=== PATIENT | male | born 1995 | race Caucasian/White ===

== ENCOUNTER 2018-01-17 17:13 | Emergency (ER) | payer OTHER ==
[~2018-01-17] VITALS: Ht 170.2 cm; Wt 61.0 kg
[2018-01-17 17:17] VITALS: BP 113/71; PULSE 66; RESP 18; TEMP 98.8; O2SAT 96
[2018-01-17] MEDS ORDERED: IBUPROFEN 600 MG TAB PO ONE (19:00)
--- NOTE | 2018-01-17 19:07 | PD ---
HPI Chief Complaint: Musculoskeletal Complaint Time Seen by Provider: 18:36 Travel History International Travel<30 days: No Contact w/Intl Traveler<30days: No Traveled to known affect area: No History of Present Illness HPI 22-year-old male presents to the emergency room for evaluation of right foot pain and swelling after injuring it just prior to arrival while at work. He was pulling a pallet of fluids that weighed close to 1000 pounds and accidentally pulled it over his foot. He had immediate pain localized to the right fourth and fifth toes and worse with range of motion or when he pushes on it. He has not taken anything for pain. Denies paresthesias. No chronic medial conditions or daily medications. [facility] Social History Alcohol Use: No Tobacco Use: No Substance Use: No Allergies-Medications (Allergen,Severity, Reaction): Coded Allergies: No Known Allergies (Unverified , 01/17/18) Reported Meds & Prescriptions Reported Meds & Active Scripts Active No Active Prescriptions or Reported Medications Review of Systems Except as stated in HPI: all other systems reviewed are Neg Physical Exam Narrative GENERAL: Well-nourished, well-developed male in no acute distress. Afebrile. Ambulatory. SKIN: Focused skin assessment warm/dry. Moderate erythema and very mild subungual hematomas of the right fourth and fifth toes. HEAD: Normocephalic. EYES: No scleral icterus. No injection or drainage. NECK: Supple, trachea midline. No JVD or lymphadenopathy. CARDIOVASCULAR: Regular rate and rhythm without murmurs, gallops, or rubs. RESPIRATORY: Breath sounds equal bilaterally. No accessory muscle use. MUSCULOSKELETAL: No cyanosis. Very mild edema of the right fourth and fifth toes. Less than 2 second capillary refill distally. No bony tenderness to palpation of the foot or 1-3 toes but moderate TTP of the right fourth and fifth toes. Limited range of motion of the toe secondary to pain. Data Data Last Documented VS Vital Signs Date Time Temp Pulse Resp B/P (MAP) Pulse Ox O2 Delivery O2 Flow Rate FiO2 01/17/18 17:17 98.8 66 18 113/71 (85) 96 Orders Orders Foot, Complete ([id number]) (01/17/18 ) Ibuprofen (Motrin) (01/17/18 19:00) [facility] Medical Decision Making Medical Screen Exam Complete: Yes Emergency Medical Condition: Yes Medical Record Reviewed: Yes Differential Diagnosis Contusion, strain, sprain, fracture Narrative Course 22-year-old male presents to the emergency room for evaluation of right fourth and fifth toe pain and swelling after running over it with a 1000 pound pallet just prior to arrival. Physical exam reveals moderate ecchymosis, erythema, and edema of the right fourth and fifth toes. There is very mild subungual hematomas. Extreme tenderness to palpation of the toes. X-ray of the foot is read as negative but there is obvious fracture of the fifth toe. Patient's toe was robert taped and he was placed in postop shoe. He was told to follow-up with a primary care physician or return for worsening symptoms. He understands and agrees to plan. Diagnosis Primary Impression: Toe fracture, right Qualified Codes: S92.531A - Displaced fracture of distal phalanx of right lesser toe(s), initial encounter for closed fracture Referrals: Primary Care Physician Additional Instructions: Rest and drink plenty of fluids. Keep toe robert taped for at least 6 weeks. Take ibuprofen with food as directed, as needed for pain. Apply ice to the affected area for 20 minutes at a time, as needed for pain and swelling. Follow-up with a primary care physician. Return to the emergency room for worsening symptoms. Med/Other Pt SpecificInfo: Prescription(s) given Scripts No Active Prescriptions or Reported Meds Disposition: 01 DISCHARGE HOME Condition: Stable Seble Jacobs Jan 17, 2018 19:07
--- NOTE | 2018-01-17 20:02 | RADRPT ---
EXAM DATE/TIME: 01/17/2018 19:35 [facility] COMPARISON: No previous studies available for comparison. INDICATIONS : Right 3rd, 4th, and 5th metatarsal pain after a pallet ran over patients foot at work today. MEDICAL HISTORY : None. SURGICAL HISTORY : None. ENCOUNTER: Initial ACUITY: 1 day PAIN SCORE: 7/10 LOCATION: Right foot. FINDINGS: Three view examination of the right foot demonstrates no soft tissue swelling, dislocation, or fractu re. The tarsal bones appear intact. The interphalangeal and metatarsophalangeal joints are intact. The calcaneus is intact. Bony mineralization is normal. Mild cortical and subchondral irregularity seen of the fifth metatarsal head, appears chronic. There is also mild osseous irregularity of the distal phalanx of little toe that appears nonacute. CONCLUSION: No acute fracture or subluxation demonstrated of the right foot. Jordan Tong MD on January 17, 2018 at 19:57 Board Certified Radiologist. This report was verified electronically.
== END 2018-01-17 20:41 | disposition home or self-care (01) ==
LOC: PHED 17:13 → PHEFT 20:41
DX: S92.531A Displaced fracture of distal phalanx of right lesser toe(s), initial encounter for closed fracture (principal); W22.8XXA Striking against or struck by other objects, initial encounter
CPT/HCPCS: 73630; 99283